=== PATIENT | male | born 1985 | race African-American/Black ===

== ENCOUNTER 2018-05-13 11:45 | Emergency (ER) | payer BC ==
[~2018-05-13] VITALS: Ht 167.6 cm; Wt 99.8 kg
[2018-05-13] MEDS ORDERED: NKM (11:51)
[2018-05-13 11:55] VITALS: BP 147/69
[2018-05-13] MEDS ORDERED: DiphenhydrAMINE 50mg/ml Inj IVP ONE (13:00)
--- NOTE | 2018-05-13 13:32 | Diagnostic Imaging Report ---
Indication: Headache Technique: Continuous helical CT scanning of the head was performed utilizing automated exposure control without intravenous contrast material. Axial and coronal reconstructions were obtained. Comparison: None CT dose: Total DLP 1383.12 mGycm; CTDI vol 70.38 mGy Findings: There is no acute intracranial hemorrhage, mass effect, midline shift or cortical edema. Bob-white differentiation appears preserved. The ventricles, cisterns and sulci are within normal limits. Visualized mastoid air cells are clear. Mucosal thickening noted in some ethmoid air cells. No focal lesions of the bony calvarium or soft tissues of the scalp are seen. IMPRESSION: No evidence of acute intracranial hemorrhage, mass effect or cortical edema. MRI may be obtained for more sensitive evaluation as clinically indicated. Atrophy and nonspecific periventricular hypoattenuation suggestive of chronic ischemic microvascular changes. The CT scanner at [facility] is accredited by the [employer] and the scans are performed using protocols designed to limit radiation exposure to as low as reasonably achievable to attain images of sufficient resolution adequate for diagnostic evaluation. Normal.
[2018-05-13 13:53] VITALS: BP 120/85
[2018-05-13 15:00] VITALS: BP 124/79
--- NOTE | 2018-05-13 15:03 | Emergency Room Report ---
History of Present Illness General Chief Complaint: Headache Source: Patient Present Illness HPI The patient states that he was at work today when he suddenly developed a right- sided headache and then generalized weakness. He states he also became nauseated at that time. He states he did have one similar episode a couple years ago and he was evaluated at [facility]. He states he underwent MRI of his brain and it was unremarkable. He was diagnosed with a migraine. He states that he hasn't had any further episodes like this. He denies recent illness. He denies blurry vision. He denies fever or chills. He denies neck pain or stiffness. He has no other complaints. 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 Social History: Denies: smoking, alcohol use, drug use Reviewed Nursing Documentation: PMH: Agreed; PSxH: Agreed Nursing Documentation-PMH Past Medical History: No Stated History Review of Systems All Other Systems: negative except mentioned in HPI Physical Exam Vital Signs Date Time Temp Pulse Resp B/P (MAP) Pulse Ox O2 Delivery O2 Flow Rate FiO2 05/13/18 11:46 97.9 64 16 154/98 98 Room Air 97.9 Sp02 EP Interpretation: reviewed, normal General Appearance: no apparent distress, alert, GCS 15, non-toxic Head: normocephalic, atraumatic Eyes: bilateral eye normal inspection, bilateral eye PERRL ENT: hearing grossly normal, normal pharynx, no angioedema, normal voice Neck: full range of motion, supple/symm/no masses Respiratory: chest non-tender, lungs clear, normal breath sounds, no respiratory distress, no retraction, no accessory muscle use, speaking full sentences Cardiovascular #1: regular rate, rhythm, no edema Gastrointestinal: normal bowel sounds, non tender, soft, non-distended, no guarding, no rebound Rectal: deferred Musculoskeletal: back normal, gait/station normal, normal range of motion, non- tender Neurologic: alert, oriented x3, responsive, motor strength/tone normal, sensory intact, speech normal Psychiatric: judgement/insight normal, memory normal, mood/affect normal, no suicidal/homicidal ideation Skin: normal color, no rash, warm/dry, well hydrated Medical Decision Making Diagnostic Impression: Primary Impression: Headache ER Course This patient is a clinical presentation consistent with migraine. The patient was treated with Compazine, Benadryl and 1 liter of normal saline. The patient had complete resolution of the headache. There were no red flags on physical exam or history. I do not suspect meningitis, intracranial bleed, sinusitis. CT of the head was obtained given hx of tumor, however, this was negative. I do not feel that an MRI needs repeated at this time. No emergency medical condition was identified. The patient was given return precautions and followup instructions. CT/MRI/US Diagnostic Results CT/MRI/US Diagnostic Results : Imaging Test Ordered: CT head Impression No acute findings. Specifically no intracranial bleed, mass effect or edema. See official report. Last Vital Signs Date Time Temp Pulse Resp B/P (MAP) Pulse Ox O2 Delivery O2 Flow Rate FiO2 05/13/18 13:53 97.9 65 21 120/85 100 Room Air 97.9 Status: improved Disposition: HOME, SELF-CARE Condition: Improved Referrals: NOT CHOSEN IPA/MD,REFERRING (PCP) Patient Instructions: Migraine Headache Jessa Mayer DO May 13, 2018 15:03
[2018-05-13 15:13] VITALS: BP 124/79
== END 2018-05-13 15:13 | disposition home or self-care (01) ==
LOC: EDBD 11:45 → EMR 12:05
DX: R51 Headache (principal)
CPT/HCPCS: 70450; 96361; 96374; 96375; 99284; J0780; J1200